=== PATIENT | female | born 1945 | race Caucasian/White ===

== ENCOUNTER 2025-03-03 11:00 | Emergency (ER) | payer MEDICARE, MEDICAID, SELFPAY ==
[2025-03-03 11:01] VITALS: BMI 13.8
--- NOTE | 2025-03-03 11:05 | EKG_ITS ---
[facility] Test Date: 2025-03-03 Pat Name: LASHAY TURNER Department: Room: - Gender: Female Pediatric Social Worker: : 1945 Requested By: ED Temporary Provider Order Number: [id number] Reading MD: ED Temporary Provider Measurements Intervals [place] Rate: 90 P: 73 [place]: 120 QRS: 138 QRSD: 121 T: -51 QT: 404 QTc: 496 Interpretive Statements SINUS RHYTHM LEFT ATRIAL ENLARGEMENT [-0.15mV P-WAVE IN V1/V2] RIGHT AXIS DEVIATION [QRS AXIS > 100] RIGHT BUNDLE BRANCH BLOCK AND POSSIBLE RIGHT VENTRICULAR HYPERTROPHY [RBBB, 1.5 mV R IN V1, RAD] MODERATE T-WAVE ABNORMALITY, CONSIDER INFERIOR ISCHEMIA [-0.1+ mV T-WAVE IN II/aVF] No previous ECG available for comparison /[id number]
[2025-03-03 11:33] VITALS: BP 112/70; PULSE 92; RESP 24; TEMP 36.6; O2SAT 80
[2025-03-03 11:34] VITALS: O2SAT 94
--- NOTE | 2025-03-03 11:34 | XR_ITS ---
Examination: PA lateral chest 2 views TECHNIQUE: Upright PA lateral chest 2 views Date and time: March 03, 2025 1208 hours Comparison January 07, 2023 INDICATIONS: Chest pain lower leg swelling beginning last month FINDINGS: Mild CHF Mild enlargement cardiac contour CABG Perihilar basilar edema. Small bilateral pleural effusions Significant hyperexpansion Severe osteopenia IMPRESSION: COPD Mild CHF
--- NOTE | 2025-03-03 11:35 | PD.EDRME ---
Rapid Medical Screening Exam RME Arrival date/time: 03/03/25 11:00 79-year-old female with a history of hypertension, CHF, COPD presents to the emergency room with a chief complaint of weakness, bilateral lower extremity swelling and shortness of breath x 4 days I have greeted and performed a focused initial assessment of this patient. A comprehensive ED assessment and evaluation of the patient, analysis of all test results, and completion of the medical decision making process will be conducted by additional ED providers. Chief Complaint: General Adult/Misc Complain Time Seen by Provider: 03/03/25 11:31 Vital signs: Vital Signs Temperature 98 F 03/03/25 11:33 Pulse Rate 92 03/03/25 11:33 Respiratory Rate 24 H 03/03/25 11:33 Blood Pressure 112/70 03/03/25 11:33 Pulse Oximetry (%) 80 L 03/03/25 11:33 Oxygen Delivery Method Room Air 03/03/25 11:33 Vital signs reviewed by provider: Yes
[2025-03-03 12:18] LABS: Collection Type, Urine Clean Catch
[2025-03-03 12:21] LABS: Basophils % (Auto) 1 % (0-2.5); Eosinophils # (Auto) 0.1 Thou/mm3 (0.0-0.5); Eosinophils % (Auto) 3 % (0-10); Hematocrit 42.3 % (36.0-46.0); Hemoglobin 13.4 g/dL (12.0-16.0); Immature Granulocytes % (Auto) 0 % (0-0); Immature Granulocytes Auto 0.01 Thou/mm3 (0.00-0.00); Lymphocytes # (Auto) 1.1 Thou/mm3 (1.0-4.8); Lymphocytes % (Auto) 28 % (10-50); Mean Corpuscular HGB Conc 31.7 g/dl (31.0-37.0); Mean Corpuscular Hemoglobin 29.7 pg (25.0-35.0); Mean Corpuscular Volume 94 fL (80-100); Monocytes # (Auto) 0.4 Thou/mm3 (0.0-0.8); Monocytes % (Auto) 9 % (0-12); Neutrophils # (Auto) 2.4 Thou/mm3 (1.8-7.7); Neutrophils % (Auto) 59 % (37-80); Nucleated Red Blood Cell % 0 /100 WBC (0); Platelet Count 156 Thou/mm3 (140-440); RDW Standard Deviation 49.2 fL (36.4-46.3); Red Blood Count 4.51 Miln/mm3 (4.00-5.20)
[2025-03-03 12:25] LABS: Bilirubin,Urine Negative (Negative); Blood,Urine 1+ (Negative); Clarity,Urine Clear (Clear/Hazy); Color,Urine Yellow (Lt Yel-Yel); Glucose, Urine Negative (Negative); Hyaline Casts,Urine < 1 /hpf (0-1); Ketones,Urine Negative (Negative); Leukocyte Esterase,Urine Positive (Negative); Nitrite,Urine Negative (Negative); Protein,Urine 2+ (Neg - Trace); RBC,Urine 10 /hpf (0-3); Specific Gravity,Urine 1.026 (1.001-1.035); Squamous Epithelial Cell,Urine 10 /hpf (0-5); WBC,Urine 8 /hpf (0-5)
[2025-03-03 12:30] LABS: Amphetamine/Methamp Scrn,U Negative (Negative); Barbiturate Screen,Urine Negative (Negative); Benzodiazepines Screen,Urine Negative (Negative); Benzoylecgonine Screen, Ur Negative (Negative); Fentanyl Screen,Urine Negative (Negative); Opiate Screen,Urine Negative (Negative); THC Screen,Urine Negative (Negative)
[2025-03-03 12:37] LABS: Partial Thromboplastin Time 24.4 Seconds (22.0-36.0); Prothrombin Time 10.5 Seconds (9.0-12.2)
[2025-03-03 13:00] LABS: Alanine Aminotransferase 36 U/L (10-49); Albumin, Serum 3.6 gm/dL (3.4-4.8); Albumin/Globulin Ratio 1.6 (1.2-2.2); Alkaline Phosphatase 98 U/L (46-116); Anion Gap 10 (7-16); B-Type Natriuretic Peptide 938 pg/mL (0-100); BUN/Creatinine Ratio 19 Ratio (12-20); Bilirubin,Total 0.4 mg/dL (0.3-1.2); Blood Urea Nitrogen 19 mg/dL (9-23); Calcium 8.7 mg/dL (8.3-10.6); Carbon Dioxide > 40.0 mMol/L (20.0-31.0); Chloride 98 mMol/L (98-107); Estimated Creatinine Clearance 25.2 mL/min (>60); Globulin 2.3 gm/dL (2.3-3.5); Glucose 99 mg/dL (74-106); Magnesium 1.9 mg/dL (1.6-2.6); Osmolality,Calculated 296 (275-295); Potassium 3.4 mMol/L (3.4-5.1); Sodium 148 mMol/L (136-145); Total Protein 5.9 gm/dL (5.7-8.2); eGFR 58 See Note
[2025-03-03 13:04] LABS: Troponin I 0.644 ng/mL (0.0-0.045)
--- NOTE | 2025-03-03 13:35 | PC.NURSE ---
PT CAME TO TRIAGE DESK AND ASKED IF YOU WILL SEND ALL THE RESULTS TO MY DOCTOR. INFORMED PT THAT HER DOCTOR WILL GET THE RESULTS. SHE SAID , GOOD. THEN SINCE NOTHING IS GOING TO HAPPEN TODAY, I WANT TO LEAVE AND GO HOME WHERE I WILL BE MORE COMFORTABLE. EXPLAINED TO PT THAT HER OXYGEN WAS LOW AND THE PROVIDER PUT OXYGEN ON HER, AND WITHOUT THE OXYGEN SHE COULD STOP BREATHING, OR HER OXYGEN COULD GET VERY LOW, OR SHE COULD . PT STATES WHEN IT'S YOUR TIME, IT'S YOUR TIME. SIGNED AMA FORM AND OXYGEN REMOVED FROM PT AND PT WALKED OUT
== END 2025-03-03 13:35 | disposition left against medical advice (07) ==
LOC: SERX 12:53
PROVIDERS: Nurse Practitioner Family; Emergency Provider Family Medicine; PCP Family Medicine
DX: R06.02 Shortness of breath (principal); R53.1 Weakness; M79.89 Other specified soft tissue disorders; I45.10 Unspecified right bundle-branch block; I11.0 Hypertensive heart disease with heart failure; I50.9 Heart failure, unspecified; J44.9 Chronic obstructive pulmonary disease, unspecified; Z53.29 Procedure and treatment not carried out because of patient's decision for other reasons
CPT/HCPCS: 36415; 71046; 80053; 80307; 81001; 83735; 83880; 84484; 85025; 85610; 85730; 93005; 99281